=== PATIENT | female | born 1975 | race Asian ===

== ENCOUNTER → 2021-05-20 16:19 | Outpatient (CLI) | payer OTHER, SELFPAY ==
[2021-05-20 17:02] LABS: COVID19 -Nasal RAPID Negative (Negative)
== END ==
PROVIDERS: Visit Provider Physician Assistant
DX: R05 Cough (principal); R19.7 Diarrhea, unspecified; Z20.822 Contact with and (suspected) exposure to COVID-19
CPT/HCPCS: 87635

== ENCOUNTER 2023-10-23 23:20 | Emergency (ER) | payer OTHER, SELFPAY ==
[2023-10-23 23:27] VITALS: BP 161/88; PULSE 73; O2SAT 99
[2023-10-23 23:30] VITALS: BP 134/65; PULSE 79; O2SAT 100
--- NOTE | 2023-10-23 23:35 | ED.GENADULT ---
HPI - General Adult General Chief complaint: Extremity Problem,Nontraumatic Stated complaint: Reaction to medication Time Seen by Provider: 10/23/23 23:23 History of Present Illness HPI narrative: 48-year-old female who presents with right-sided paraspinal cervical neck and shoulder pain described as a non-radiating ache for x 2 days. Patient also reporting intermittent right lower extremity/posterior pain that has now resolved, with left lower extremity posterior pain described as an ache that started just prior to arrival. Patient reports taking medroxyprogesterone yesterday beginning another round of medication after completing a 10 day course starting on 10/01/2023 for dysfunctional uterine bleeding secondary to uterine fibroids. Patient reports menorrhagia for 2 years. Patient reports being in her usual state of health prior to symptom onset. No other complaints or associated symptoms noted. Patient arrives via private vehicle. Patient is ambulatory awake, alert, in no apparent distress and maintaining her own airway. Related Data Home Medications Medication Instructions Recorded Confirmed medroxyprogesterone 10 mg tablet 10 mg PO DAILY 10/23/23 Allergies Allergy/AdvReac Type Severity Reaction Status Date / Time acetaminophen [From VICODIN] Allergy Unknown rash Unverified 01/27/18 12:22 ciprofloxacin [From CIPRO] Allergy Unknown achilles Unverified 01/27/18 12:22 tendon hydrocodone [From VICODIN] Allergy Unknown rash Unverified 01/27/18 12:22 ibuprofen [IBUPROFEN] Allergy Unknown rash Unverified 01/27/18 12:22 oxycodone [From PERCOCET] Allergy Unknown rash Unverified 01/27/18 12:22 Review of Systems Review of Systems Narrative: See HPI for pertinent positives, otherwise review of systems is negative Patient History Surgical History Status post delivery (08/04/14) Social History Smoking Status: Never smoker Smoking Status: Never smoker Exam Initial Vital Signs Initial Vital Signs: Vital Signs Pulse Rate 73 10/23/23 23:27 Blood Pressure 161/88 H 10/23/23 23:27 Pulse Oximetry 99 10/23/23 23:27 Const General: cooperative, healthy appearing, comfortable, well developed, well groomed, No acute distress, No in distress, anxious, No diaphoretic, No ill appearing and well hydrated [facility] [place] Head: normal to inspection, normocephalic and atraumatic Nose: external nose normal and nares normal Face and sinus: normal facial exam Mouth: oral mucosae normal, lip normal, tongue normal, oropharynx normal and moist mucous membranes Throat: posterior oropharynx normal Eyes General: Yes appearance normal, both eyes and all related structures Neck Neck: normal visual inspection Chest Chest: normal inspection of the chest Resp Effort & Inspection: normal respiratory effort, able to speak in complete sentences and no respiratory distress Cardio Rate: regular rate Rhythm: regular rhythm Pulses: radial pulses present GI Inspection: normal to inspection and non-distended Other: Exam deferred Back/Spine/Pelvis Back: normal to inspection, No back tenderness, No crepitance, No CVA tenderness, No ecchymosis, No erythema, No mass and No warmth Cervical Spine: normal cervical lordosis, cervical ROM normal, cervical muscular tenderness, cervical spasm and No step off deformity Thoracic/Lumbar Spine: thoracic and lumbar spine normal to inspection Skin General: no rashes or lesions noted and turgor normal Neuro General: patient alert, patient awake, patient oriented x3, gait normal and moves all extremities Extrem General: normal to inspection, full ROM, no joint enlargement, No cyanosis and No edema Psych Appearance: grossly normal and well kempt Speech and Movement: speech and movement normal and speech clear Course Course Course Narrative: See MDM Orders Ordered: ED Orders 10/23/23 23:39 CBC Auto Diff [Complete Blood Count AUTO DIFF] Stat CMP [Comprehensive Metabolic Panel] Stat Discontinued Medications Sodium Chloride (Normal Saline 0.9%) 1,000 mls @ 1,000 mls/hr IV BOLUS ONE Stop: 10/24/23 00:32 Last Infusion: 10/24/23 00:22 Dose: Infused Vital Signs Vital signs: Vital Signs - 8 hr 10/23/23 23:27 10/23/23 23:27 10/23/23 23:30 Temperature Pulse Rate 73 Respiratory Rate Blood Pressure 161/88 H 134/65 Pulse Oximetry 99 Oxygen Delivery Method 10/23/23 23:30 10/23/23 23:43 10/24/23 00:00 Temperature 98.5 F Pulse Rate 79 78 66 Respiratory Rate 18 Blood Pressure 158/84 H Pulse Oximetry 100 100 100 Oxygen Delivery Method Room Air 10/24/23 00:00 Temperature Pulse Rate Respiratory Rate Blood Pressure 122/60 Pulse Oximetry Oxygen Delivery Method Medical Decision Making Differential Diagnosis Differential Diagnosis: DVT, muscle spasms, electrolyte abnormalities, anemia, anxiety Lab Data Lab results narrative: Anemia and minor hyponatremia noted otherwise diagnostic laboratory testing within normal limits/non-actionable. 10/23/23 23:39 10/23/23 23:39 Labs: Lab Results 10/23/23 Range/Units 23:39 WBC 10.1 (4.5-11.0) X10^3/uL RBC 4.99 (4.0-5.2) X10^6/uL Hgb 10.2 L (12.0-16.0) g/dL Hct 33.0 L (36-46) % MCV 66.2 L (80-100) fL MCH 20.5 L (26-34) PG MCHC 31.0 (30-36) % RDW 29.3 H (11.6-14.8) % Plt Count 314 (150-400) X10^3/uL Neut % (Auto) 65.0 (50-75) % Lymph % (Auto) 23.5 L (25-40) % [place] % (Auto) 9.7 (3-14) % Eos % (Auto) 1.5 L (2-4) % Baso % (Auto) 0.3 (0-2) % Neut # (Auto) 6600 (8885-0226) /uL Lymph # (Auto) 2400 (9276-2634) /uL [place] # (Auto) 1000 H (0-900) /uL Eos # (Auto) 200 (0-450) /uL Baso # (Auto) 0 (0-100) /uL RBC Morphology See below Hypochromasia 1+ H Anisocytosis 2+ H Microcytosis 2+ H Sodium 136 L (137-145) mmol/L Potassium 4.2 (3.4-5.1) mmol/L Chloride 104 (98-107) mmol/L Carbon Dioxide 24 (22-32) mmol/L BUN 14 (7-17) mg/dL Creatinine 0.69 (0.52-1.04) mg/dL Estimated GFR > 60 (>60) mL/min BUN/Creatinine Ratio 20.3 (6-22) Glucose 88 (70-100) mg/dL Calcium 9.4 (8.4-10.2) mg/dL Total Bilirubin 0.5 (0.2-1.3) mg/dL AST 33 (14-36) IU/L ALT 36 H (<35) IU/L Alkaline Phosphatase 74 (38-126) U/L Total Protein 7.9 (6.3-8.2) g/dL Albumin 4.6 (3.5-5.0) g/dL Globulin 3.3 (1.7-4.1) g/dL Albumin/Globulin Ratio 1.4 (1.0-2.8) MDM Narrative Medical decision making narrative: Patient presents with transient bilateral lower extremity pain and tenderness along with right-sided paraspinal cervical pain and spasm. Current vital signs are within normal limits/non actionable. Patient is afebrile. Pulse oximetry 98% on room air, normal pulse oximetry. Patient does have increased risk of coagulopathy with medroxyprogesterone. Patient's transient lower extremity pain and tenderness are not consistent with DVT and no imaging is warranted at this time. Diagnostic laboratory testing is not suggestive of electrolyte abnormalities. IV fluids given. Discussed findings with patient. Patient is vague, nonspecific symptoms are difficult to associated directly with medroxyprogesterone. Patient does not appear to be in anaphylaxis or any acute allergic reaction/drug reaction. Return precautions given. PCP follow-up recommended in 1 week. Patient able to ambulate well without assistance at time of discharge. Discharge Plan Departure Patient Disposition: Home Clinical Impression: Muscle spasm of calf, Muscle spasm of back Anemia Qualifiers: Anemia type: unspecified type Qualified Code(s): D64.9 - Anemia, unspecified Instructions: DI for Muscle Spasm Prescriptions: Continued medroxyprogesterone 10 mg tablet 10 mg PO DAILY Referrals: Santi Ledesma MD [Primary Care Provider] - As soon as possible Stand Alone Forms: Patient Portal/API
[2023-10-23] MEDS: SODIUM CHLORIDE 0.9% 1,000 ML 1000 ML IV (23:38)
[2023-10-23 23:43] VITALS: BP 158/84; PULSE 78; RESP 18; TEMP 36.9; O2SAT 100; BMI 28.3
--- NOTE | 2023-10-23 23:54 | PC.NURSE ---
see triage note for complaint, pt states she just found out she has fibroids and had a consultation today to have them removed
[2023-10-23 23:56] LABS: Add Manual Diff / Slide Review NO; Basophils Absolute Auto 0 /uL (0-100); Basophils Percent Auto 0.3 % (0-2); Eosinophils Absolute Auto 200 /uL (0-450); Eosinophils Percent Auto 1.5 % (2-4); Hemoglobin 10.2 g/dL (12.0-16.0); Lymphocytes Absolute Auto 2400 /uL (1100-4500); Lymphocytes Percent Auto 23.5 % (25-40); Mean Corpuscular Hemoglobin 20.5 PG (26-34); Mean Corpuscular Volume 66.2 fL (80-100); Monocytes Absolute Auto 1000 /uL (0-900); Monocytes Percent Auto 9.7 % (3-14); Neutrophils Absolute Auto 6600 /uL (1500-7000); Platelet Count 314 X10^3/uL (150-400); Red Blood Cell Count 4.99 X10^6/uL (4.0-5.2); Red Cell Distribution Width 29.3 % (11.6-14.8); White Blood Cell Count 10.1 X10^3/uL (4.5-11.0)
[2023-10-23 23:57] LABS: Alanine Aminotransferase 36 IU/L (<35); Albumin 4.6 g/dL (3.5-5.0); Albumin Globulin Ratio 1.4 (1.0-2.8); Alkaline Phosphatase 74 U/L (38-126); Aspartate Aminotransferase 33 IU/L (14-36); BUN Creatinine Ratio 20.3 (6-22); Bilirubin Total 0.5 mg/dL (0.2-1.3); Blood Urea Nitrogen 14 mg/dL (7-17); Calcium 9.4 mg/dL (8.4-10.2); Carbon Dioxide 24 mmol/L (22-32); Chloride 104 mmol/L (98-107); Estimated Glomerular Filt Rate > 60 mL/min (>60); Globulin 3.3 g/dL (1.7-4.1); Glucose 88 mg/dL (70-100); HEMOLYSIS < 15 (0-50); Potassium 4.2 mmol/L (3.4-5.1); Sodium 136 mmol/L (137-145); Total Protein 7.9 g/dL (6.3-8.2)
[2023-10-24] VITALS: BP 122/60; PULSE 66; O2SAT 100
[2023-10-24 00:07] LABS: Anisocytosis 2+; Hypochromasia 1+; Microcytosis 2+
== END 2023-10-24 00:23 | disposition home or self-care (01) ==
PROVIDERS: Emergency Provider Emergency Medicine; PCP Family Medicine
DX: M62.830 Muscle spasm of back (principal); M62.831 Muscle spasm of calf; D64.9 Anemia, unspecified
CPT/HCPCS: 36415; 80053; 85025; 99283; 99284

== ENCOUNTER 2023-11-15 07:30 | Emergency (ER) | payer OTHER, SELFPAY ==
[2023-11-15 07:39] VITALS: BP 124/57; PULSE 60; RESP 16; TEMP 36.6; O2SAT 100; BMI 26.6
--- NOTE | 2023-11-15 07:54 | ED_ITS ---
HPI - General Adult General Chief complaint: Abdominal Pain Stated complaint: per pt has fibroids, uterus pain Time Seen by Provider: 11/15/23 07:36 Source: patient Mode of arrival: Ambulatory Limitations: no limitations History of Present Illness HPI narrative: Patient is a 48-year-old female. A known history of uterine fibroids. Has never had any discomfort with them but has had abnormal vaginal bleeding associated with anemia. There has been discussion about a hysterectomy but that is yet to happen. She has had a in the past. This morning after waking up she was standing in her kitchen when she had a fairly sudden onset of very intense lower abdominal/adnexal pain. She states that it lasted for approximately 15-20 minutes and then started to improve. She did feel like she needed to have a bowel movement and did have diarrhea during this time. Diarrhea is not unusual for her since she started taking iron tablets. She was also nauseous and very sweaty. The episode of diarrhea did not improve her abdominal pain. She states that it did start to improve while she was in route here to the emergency department. She has not having any vaginal bleeding. No urinary symptoms. No history of kidney stones. Currently she states she is just having some soreness in her lower abdomen. It is both sides but left greater than right and also midline. No fevers. No recent travel. She states the pain was crampy in nature. Related Data Home Medications Medication Instructions Recorded Confirmed medroxyprogesterone 10 mg tablet 10 mg PO DAILY 10/23/23 Allergies Allergy/AdvReac Type Severity Reaction Status Date / Time acetaminophen [From VICODIN] Allergy Unknown rash Unverified 01/27/18 12:22 ciprofloxacin [From CIPRO] Allergy Unknown achilles Unverified 01/27/18 12:22 tendon hydrocodone [From VICODIN] Allergy Unknown rash Unverified 01/27/18 12:22 ibuprofen [IBUPROFEN] Allergy Unknown rash Unverified 01/27/18 12:22 oxycodone [From PERCOCET] Allergy Unknown rash Unverified 01/27/18 12:22 Review of Systems Constitutional Constitutional: Reports system reviewed and no additional complaints, except as documented Cardiovascular Cardiovascular: Reports system reviewed and no additional complaints, except as documented Respiratory Respiratory: Reports system reviewed and no additional complaints, except as documented Gastrointestinal Gastrointestinal: Reports system reviewed and no additional complaints, except as documented Genitourinary Genitourinary: Reports system reviewed and no additional complaints, except as documented Hematologic/Lymphatic On Anticoagulants: No Patient History Surgical History Status post delivery (08/04/14) Social History Smoking Status: Never smoker Smoking Status: Never smoker Exam Initial Vital Signs Initial Vital Signs: Vital Signs Temperature 97.8 F 11/15/23 07:39 Pulse Rate 60 11/15/23 07:39 Respiratory Rate 16 11/15/23 07:39 Blood Pressure 124/57 L 11/15/23 07:39 Pulse Oximetry 100 11/15/23 07:39 Oxygen Delivery Method Room Air 11/15/23 07:39 Const General: cooperative, comfortable and No ill appearing HENMT Head: normal to inspection and normocephalic GI Inspection: normal to inspection and non-distended Palpation: soft, No firm, No guarding and tender (Lower abdomen) Other: Bilateral adnexal tenderness Back/Spine/Pelvis Back: No CVA tenderness Neuro General: patient alert, patient awake and moves all extremities Extrem General: capillary refill normal Course Orders Ordered: ED Orders 11/15/23 07:55 US pelvic complete Stat 11/15/23 08:15 Complete Blood Count AUTO DIFF Stat Comprehensive Metabolic Panel Stat Lipase Stat Vital Signs Vital signs: Vital Signs - 8 hr 11/15/23 07:39 Temperature 97.8 F Pulse Rate 60 Respiratory Rate 16 Blood Pressure 124/57 L Pulse Oximetry 100 Oxygen Delivery Method Room Air Medical Decision Making Lab Data Lab results reviewed: Yes I reviewed the patient's lab results. 11/15/23 08:15 11/15/23 08:15 Labs: Lab Results 11/15/23 Range/Units 08:15 WBC 6.6 (4.5-11.0) X10^3/uL RBC 4.84 (4.0-5.2) X10^6/uL Hgb 12.0 (12.0-16.0) g/dL Hct 37.4 (36-46) % MCV 77.3 L (80-100) fL MCH 24.8 L (26-34) PG MCHC 32.1 (30-36) % RDW 33.4 H (11.6-14.8) % Plt Count 286 (150-400) X10^3/uL Neut % (Auto) 83.1 H (50-75) % Lymph % (Auto) 9.5 L (25-40) % [place] % (Auto) 5.3 (3-14) % Eos % (Auto) 0.8 L (2-4) % Baso % (Auto) 1.3 (0-2) % Neut # (Auto) 5500 (3506-2299) /uL Lymph # (Auto) 600 L (8391-7525) /uL [place] # (Auto) 300 (0-900) /uL Eos # (Auto) 100 (0-450) /uL Baso # (Auto) 100 (0-100) /uL RBC Morphology See below Anisocytosis 2+ H Microcytosis 1+ H Ovalocytes 1+ H Schistocytes 1+ H Sodium 136 L (137-145) mmol/L Potassium 4.6 (3.4-5.1) mmol/L Chloride 106 (98-107) mmol/L Carbon Dioxide 24 (22-32) mmol/L BUN 10 (7-17) mg/dL Creatinine 0.58 (0.52-1.04) mg/dL Estimated GFR > 60 (>60) mL/min BUN/Creatinine Ratio 17.2 (6-22) Glucose 99 (70-100) mg/dL Calcium 9.1 (8.4-10.2) mg/dL Total Bilirubin 0.4 (0.2-1.3) mg/dL AST 39 H (14-36) IU/L ALT 41 H (<35) IU/L Alkaline Phosphatase 80 (38-126) U/L Total Protein 7.1 (6.3-8.2) g/dL Albumin 4.0 (3.5-5.0) g/dL Globulin 3.1 (1.7-4.1) g/dL Albumin/Globulin Ratio 1.3 (1.0-2.8) Lipase 52 (23-300) U/L Point of Care Testing Test Results Negative Urine Dip Bedside Urine Glucose Negative Bedside Urine Bilirubin - Negative Bedside Urine Ketone - Negative Urine Specific [place] 1.020 Bedside Urine Occult Blood - Negative Bedside Urine pH 6.0 Bedside Urine Protein - Negative Bedside Urine Urobilinogen - Negative Bedside Urine Nitrite - Negative Bedside Urine Leukocytes - Negative Esterase Point of care testing: Point of Care Testing Test Results Negative Urine Dip Bedside Urine Glucose Negative Bedside Urine Bilirubin - Negative Bedside Urine Ketone - Negative Urine Specific [place] 1.020 Bedside Urine Occult Blood - Negative Bedside Urine pH 6.0 Bedside Urine Protein - Negative Bedside Urine Urobilinogen - Negative Bedside Urine Nitrite - Negative Bedside Urine Leukocytes - Negative Esterase Imaging Data US - PREVENTIVE MAINTENANCE ENGINEER: Radiologist's Impression: ROCEDURE: US PELVIC COMPLETE INDICATIONS: known fibroids L adnexa pain TECHNIQUE: Real-time scanning was performed of the pelvic organs, with image documentation. Additional endovaginal scanning was necessary due to incomplete visualization of the adnexal and endometrial structures by transabdominal scanning. COMPARISON: None. FINDINGS: Uterus: Uterus is anteverted and enlarged in size at 2.9 x 9 x 2.2 cm. The myometrium is heterogeneous. The endometrial stripe is not well seen, secondary to fibroids. Hypoechoic uterine lesions are seen, which are attributed to fibroids. They measure as follows: Right uterus, intramural conus of 7.3 x 7.9 x 7.1 cm Left posterior uterus, intramural, 3.2 x 1.8 x 2.6 cm Left anterior uterus, intramural, 3.3 x 2.4 x 3.3 cm Ovaries: The right ovary is not seen. The left ovary measures 3.3 x 4.9 x 1.7, with a volume 14.5 cc. There is a complex nonvascular cyst within the left ovary that measures up to 1.8 cm. Normal appearing arterial waveforms are confirmed to the left ovary. Less than 12 follicles can be seen involving the left ovary. Other: No pathologic free abdominal or pelvic fluid. IMPRESSION: Negative for ovarian torsion. Mildly complex left ovarian cyst, 1.8 cm. If it would be clinically appropriate, a followup pelvic ultrasound could be considered in 6 weeks to assure resolution/ improvement. Large uterine fibroids are seen. Right ovary not seen. MDM Narrative Medical decision making narrative: Patient's abdominal pain has improved from when it was at its worse earlier this morning but is essentially the same on my re-evaluation as to what it was during my initial evaluation. The pelvic ultrasound shows uterine fibroids and a left- sided ovarian cyst. We did discuss the possibility that these are the cause of her discomfort this morning although it could not be 100% certain. We discussed the other possibility such as appendicitis or bowel obstruction or diverticulitis. We discussed the benefits and risks of a CT scan. After this discussion we opted not to perform the CT scan. I feel that this is not unreasonable. She will continue to take her medications as directed. She was given strict return precautions. She expressed understanding and agreement with plan. Discharge Plan Departure Patient Disposition: Home Clinical Impression: Abdominal pain Instructions: DI for Abdominal Pain-Adult Activity Restrictions/Additional Instructions: Recommend that you continue to take all of your medications as directed. Contact your primary care provider and your shift supervisor rn for a follow-up. Return to the emergency department for new or worsening symptoms Prescriptions: No Action medroxyprogesterone 10 mg tablet 10 mg PO DAILY Referrals: Santi Ledesma MD [Primary Care Provider] - Stand Alone Forms: Patient Portal/API
--- NOTE | 2023-11-15 07:55 | DI.US.S_ITS ---
PROCEDURE: US PELVIC COMPLETE INDICATIONS: known fibroids L adnexa pain TECHNIQUE: Real-time scanning was performed of the pelvic organs, with image documentation. Additional endovaginal scanning was necessary due to incomplete visualization of the adnexal and endometrial structures by transabdominal scanning. COMPARISON: None. FINDINGS: Uterus: Uterus is anteverted and enlarged in size at 2.9 x 9 x 2.2 cm. The myometrium is heterogeneous. The endometrial stripe is not well seen, secondary to fibroids. Hypoechoic uterine lesions are seen, which are attributed to fibroids. They measure as follows: Right uterus, intramural conus of 7.3 x 7.9 x 7.1 cm Left posterior uterus, intramural, 3.2 x 1.8 x 2.6 cm Left anterior uterus, intramural, 3.3 x 2.4 x 3.3 cm Ovaries: The right ovary is not seen. The left ovary measures 3.3 x 4.9 x 1.7, with a volume 14.5 cc. There is a complex nonvascular cyst within the left ovary that measures up to 1.8 cm. Normal appearing arterial waveforms are confirmed to the left ovary. Less than 12 follicles can be seen involving the left ovary. Other: No pathologic free abdominal or pelvic fluid. IMPRESSION: Negative for ovarian torsion. Mildly complex left ovarian cyst, 1.8 cm. If it would be clinically appropriate, a followup pelvic ultrasound could be considered in 6 weeks to assure resolution/ improvement. Large uterine fibroids are seen. Right ovary not seen. We strive to produce accurate, complete, and clear reports of imaging services. To assist us in improving patient care, this report was composed using standard report templates and voice recognition software. Therefore, it may contain abnormal punctuation, insertions and/or omissions. Occasional wrong-word or sound-alike substitutions may occur. Though we review the report and make efforts to correct it, we do recommend that the report be read carefully in proper context to recognize any text inaccuracies. Dictated by: Sergey Santiago M.D. on 11/15/2023 at 7:57 Approved by: Sergey Santiago M.D. on 11/15/2023 at 8:00
[2023-11-15 08:22] LABS: Add Manual Diff / Slide Review NO; Basophils Absolute Auto 100 /uL (0-100); Basophils Percent Auto 1.3 % (0-2); Eosinophils Absolute Auto 100 /uL (0-450); Eosinophils Percent Auto 0.8 % (2-4); Hematocrit 37.4 % (36-46); Lymphocytes Absolute Auto 600 /uL (1100-4500); Lymphocytes Percent Auto 9.5 % (25-40); Mean Corpuscular HGB Conc 32.1 % (30-36); Mean Corpuscular Hemoglobin 24.8 PG (26-34); Mean Corpuscular Volume 77.3 fL (80-100); Monocytes Absolute Auto 300 /uL (0-900); Monocytes Percent Auto 5.3 % (3-14); Neutrophils Absolute Auto 5500 /uL (1500-7000); Neutrophils Percent Auto 83.1 % (50-75); Platelet Count 286 X10^3/uL (150-400); Red Blood Cell Count 4.84 X10^6/uL (4.0-5.2); Red Cell Distribution Width 33.4 % (11.6-14.8); White Blood Cell Count 6.6 X10^3/uL (4.5-11.0)
[2023-11-15 08:34] LABS: Anisocytosis 2+; Microcytosis 1+; Ovalocytes 1+; Schistocytes 1+
[2023-11-15 08:41] LABS: Alanine Aminotransferase 41 IU/L (<35); Albumin Globulin Ratio 1.3 (1.0-2.8); Alkaline Phosphatase 80 U/L (38-126); Aspartate Aminotransferase 39 IU/L (14-36); BUN Creatinine Ratio 17.2 (6-22); Bilirubin Total 0.4 mg/dL (0.2-1.3); Blood Urea Nitrogen 10 mg/dL (7-17); Calcium 9.1 mg/dL (8.4-10.2); Carbon Dioxide 24 mmol/L (22-32); Chloride 106 mmol/L (98-107); Estimated Glomerular Filt Rate > 60 mL/min (>60); Globulin 3.1 g/dL (1.7-4.1); Glucose 99 mg/dL (70-100); HEMOLYSIS < 15 (0-50); Lipase 52 U/L (23-300); Potassium 4.6 mmol/L (3.4-5.1); Sodium 136 mmol/L (137-145); Total Protein 7.1 g/dL (6.3-8.2)
[2023-11-15 09:45] VITALS: BP 110/80; PULSE 73; O2SAT 100
== END 2023-11-15 10:03 | disposition home or self-care (01) ==
PROVIDERS: Emergency Provider Emergency Medicine; PCP Family Medicine
DX: R10.30 Lower abdominal pain, unspecified (principal); D25.9 Leiomyoma of uterus, unspecified
CPT/HCPCS: 36415; 76856; 80053; 81003; 81025; 83690; 85025; 99284

== ENCOUNTER 2024-03-07 08:27 | Day surgery (SDC) | payer OTHER, SELFPAY ==
[2024-02-29 09:32] VITALS: BMI 27.3
--- NOTE | 2024-03-07 | PATH_ITS ---
[facility] Accession Number: [id number] No. of containers..02 Tissue . 01 Material submitted: . PART A: uterus - UTERUS,FALLOPIAN TUBES PART B: cervix - CERVICAL POLYP . 01 Diagnosis: A. 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 - Probable adenomyosis. - Secretory phase endometrium without atypical hyperplasia. Two fimbriated fallopian tubes with multiple benign paratubal cysts. . B. UTERINE CERVIX, POLYPECTOMY: Endocervical polyp with squamous metaplasia. Negative for dysplasia and malignancy. [facility] 03/11/2024 1510 Local . 01 Electronically signed: . Yashira Reyna MD, Pathologist NPI- [id number] . 01 Gross description: . A. Received in formalin with two identifiers and uterus, fallopian tubes, is a morcellated uterus (475 grams, 17.2 x 15.5 x 7.4 cm), with two detached, unoriented, fimbriated fallopian tubes (5.3 x 0.6 cm and 5.1 x 0.7 cm), with no cervix or additional adnexa. The endometrium is pack and lush averaging 0.2 cm thick with a slightly gelatinous, soft appearance. The myometrium varies from pack and trabecular to white and whorled with no distinct nodules identified due to morcellation. Both tubes have violaceous smooth serosa with cystic structures measuring up to 0.1 cm in greatest dimension filled with cloudy serous fluid. The lumen are steallate and unremarkable. Recoverer sections are submitted as follows: A1: Endometrium. A2: White whorled areas. A3: Longer fallopian tube to include one-half of bisected fimbriae and cross-sections. A4: [place] fallopian tube to include one-half of bisected fimbriae and cross-sections. B. Received in formalin with two identifiers and cervical polyp, are multiple pack soft tissue fragments admixed with mucohemorrhagic material aggregating to 2.0 x 1.7 x 0.2 cm. Filtered and submitted entirely in cassette B1. ([id number]) /[facility] 03/08/2024 1103 Local . 01 Pathologist provided ICD-10: D25.0 . 01 CPT . 201069, [id number] Specimen Comment: A courtesy copy of this report has been sent to [phone] Performed at: [address] [facility] [address], [place], [place] [id number] MD Galen Rodriguez MD Phone: [phone]
[2024-03-07 09:04] VITALS: BMI 27.3
[2024-03-07 09:24] VITALS: BP 113/70; PULSE 65; RESP 14; TEMP 37.1; O2SAT 99
[2024-03-07] MEDS: LACTATED RINGERS 1,000 ML 21 ML IV (09:33)
--- NOTE | 2024-03-07 09:39 | PM.PREOP ---
Pre-operative Note Interval Note History & Physical reviewed/Exam performed by Physician: Yes Changes to H&P: No H&P completed within 30 days and has changed as indicated here:: 02/22/24
[2024-03-07] MEDS: CEFAZOLIN 2 GM/100 ML PREMIX 100 ML IV (10:15)
[2024-03-07] MEDS: ACETAMINOPHEN IV 1,000 MG/100 ML VIAL 400 MG IV (10:20)
--- NOTE | 2024-03-07 10:44 | SUR.OPER ---
Lithotomy on padded OR bed. [place] Pad Positioner under torso. Head on pillow, arms padded and tucked at sides. Legs secured in padded yellow fins stirrups.
[2024-03-07] MEDS: BUPIVACAINE 0.5% (PF) 30 ML, EPINEPHrine 0.15 MG INJ (10:45)
[2024-03-07] MEDS: ROPIVACAINE 0.2% PF 2 MG/ML 10ML AMP 20 ML INJ (11:36)
[2024-03-07 12:30] VITALS: BP 110/56; PULSE 84; RESP 15; TEMP 36.3; O2SAT 99
[2024-03-07 12:34] VITALS: BP 115/62; PULSE 78; RESP 10; O2SAT 100
[2024-03-07 12:40] VITALS: BP 108/25; PULSE 64; RESP 14; O2SAT 99
--- NOTE | 2024-03-07 12:42 | SUR.PHASEI ---
VVO to remove goldberg catheter per Dr. Gupta. Balloon deflated and the goldberg was removed without difficulty.
--- NOTE | 2024-03-07 12:43 | P.OP_ITS ---
Operative Date/Time/Diagnoses Date of procedure: 03/07/24 Time of procedure: 12:44 Pre-op diagnosis: Menorrhagia Anemia Enlarged fibroid uterus Post-op diagnosis: same Procedure & Clinicians Procedure: Procedures Operation Date: 03/07/24 09:45 Actual Procedure Side Surgeon p Laparoscopic Supracervical Hysterectomy with bilateral salpingectomy and excision of a cervical polyp Sapna Gupta MD Indications: 48-year-old 3 para 2 with menorrhagia, and enlarged fibroid uterus, and anemia. Surgeon: Sapna Gupta [employer] Lab Technician: Deidra Mancini Anesthesia Type: General and Local Operative Notes Findings: 12 week size multifibroid uterus Normal tubes and ovaries Normal liver and gallbladder Normal appendix 1.5 x 1.5 cm cervical polyp at the 3 o'clock position Closure Type: primary Specimen(s): left tube, right tube, uterus and other (Cervical polyp) Applied: catheter (Removed) Estimated blood loss (mL): 150 Blood products transfused: none Procedure in detail: The patient was taken to the operating room where she was placed in the dorsal supine position. After adequate general endotracheal anesthesia was achieved, she was placed in the dorsal lithotomy position, and prepped and draped in the usual sterile fashion. A timeout was performed. A bivalve speculum was placed into the vagina and the anterior lip of the cervix grasped with a single-tooth tenaculum. The cervical os was sequentially dilated until the ZUMI uterine manipulator could pass easily into the endometrial cavity. The single-tooth tenaculum was removed from the anterior lip of the cervix, and the bivalve speculum was removed from the vagina. Attention was then turned to the abdomen where 6 mL of half percent Marcaine with epinephrine were injected in the umbilical fold. A 5 mm incision was made. The veress needle was placed into the peritoneal cavity, and its placement confirmed by aspiration and drop test. The abdomen was insufflated with 3.4 L of CO2. The veress needle was removed. A 5 mm trocar was placed without difficulty. 2 other incisions were made 4 cm lateral to the umbilicus after 5 mL of half percent Marcaine with epinephrine were injected. These were 5 mm incisions. Two, 5 mm trocars were placed under direct visualization. The right tube was grasped with an atraumatic grasper. Using the power seal, the mesosalpinx was cauterized and cut all the way down to the cornua of the uterus. The cornua of the uterus was then grasped with an atraumatic grasper. The utero-ovarian ligaments were cauterized and cut. The round ligament and broad ligament were cauterized and cut with the power seal. Hemostasis was achieved. The bladder flap was created using the power seal with cautery and cut mcfp across. The uterine arteries on the right side were extensively cauterized with the power seal. All of this was repeated on the left side. The remainder of the bladder flap was created using the power seal, and the bladder taken down off the lower uterine segment and cervix. The Zumi uterine manipulator was removed from the uterus and a moistened sponge stick was placed into the vagina. Using the Linaloop, the cervix was amputated from the uterus 2 cm above the uterosacral ligaments. There was a small amount of bleeding noted from the posterior edge of the cervix, and this was cauterized for hemostasis. 6 mL of half percent Marcaine with epinephrine were injected above the pubic symphysis. A 12mm incision was made. A 12 mm trocar was placed under direct visualization. An Endobag was placed through the suprapubic trocar and the uterus and tubes were placed into the Endobag. The trocar was removed. The edges of the endobag were brought up through the incision. The incision was extended on the fascia using the Young scissors. The uterus was grasped with a Paula. The Aubrey was placed into the bag. The uterus was hand morcellated in approximately 40 pieces. The tubes were also removed from the Endobag. The Endobag was removed from the peritoneal cavity with the Aubrey. The fascia was closed with 0 Vicryl in a running fashion. The abdomen was re-insufflated with carbon dioxide gas. The pelvis was copiously irrigated with warm normal saline. No bleeding was noted. 20 mL of 0.2% ropivacaine were placed over the pelvic pedicles. The instruments were removed from the abdomen. The CO2 was allowed to escape. The subcutaneous layer was closed with 2 simple interrupted sutures with 3-0 Vicryl on the suprapubic incision. All of the incisions were closed with 4-0 Biosyn in a subcuticular fashion. Steri strips and Allevyn dressings were placed over the incisions. The moistened sponge stick was removed from the vagina. Sponge, lap, and instrument counts were correct x 2. The patient tolerated the procedure well, was taken to PACU in stable condition. Complications: none Post-operative Condition: stable Disposition: PACU Plan for aftercare: Home after recovery
[2024-03-07 12:45] VITALS: BP 106/56; PULSE 61; RESP 12; O2SAT 99
[2024-03-07 12:55] VITALS: BP 115/47; PULSE 60; RESP 12; TEMP 36.8; O2SAT 100
== END 2024-03-07 13:36 | disposition home or self-care (01) ==
LOC: OR 08:29 → AC 08:29
PROVIDERS: PCP Family Medicine; Referring Provider Obstetrics & Gynecology; Visit Provider Obstetrics & Gynecology
PROC: 0UT94ZL Resection of Uterus, Supracervical, Percutaneous Endoscopic Approach (ICD-10-PCS; CPT 58544; principal; 2024-03-07 09:45)
DX: N92.0 Excessive and frequent menstruation with regular cycle (principal); D50.0 Iron deficiency anemia secondary to blood loss (chronic); D25.1 Intramural leiomyoma of uterus; N83.8 Other noninflammatory disorders of ovary, fallopian tube and broad ligament; N84.1 Polyp of cervix uteri
CPT/HCPCS: 58544; 57500; 57550; 82962; J0136; J0171; J0690; J1100; J1885; J2250; J2405; J2704; J2795; J3010

== ENCOUNTER → 2024-04-18 14:29 | Outpatient (CLI) | payer OTHER, SELFPAY ==
[2024-04-18 14:58] LABS: Add Manual Diff / Slide Review NO; Basophils Absolute Auto 100 /uL (0-100); Basophils Percent Auto 0.9 % (0-2); Eosinophils Absolute Auto 0 /uL (0-450); Eosinophils Percent Auto 0.5 % (2-4); Hematocrit 43.8 % (36-46); Hemoglobin 14.5 g/dL (12.0-16.0); Lymphocytes Absolute Auto 1300 /uL (1100-4500); Lymphocytes Percent Auto 18.7 % (25-40); Mean Corpuscular HGB Conc 33.2 % (30-36); Mean Corpuscular Hemoglobin 29.3 PG (26-34); Mean Corpuscular Volume 88.2 fL (80-100); Monocytes Absolute Auto 500 /uL (0-900); Monocytes Percent Auto 7.5 % (3-14); Neutrophils Absolute Auto 5000 /uL (1500-7000); Neutrophils Percent Auto 72.4 % (50-75); Platelet Count 208 X10^3/uL (150-400); Red Blood Cell Count 4.97 X10^6/uL (4.0-5.2); Red Cell Distribution Width 13.8 % (11.6-14.8); White Blood Cell Count 6.9 X10^3/uL (4.5-11.0)
== END ==
PROVIDERS: PCP Family Medicine; Referring Provider Obstetrics & Gynecology; Visit Provider Obstetrics & Gynecology
DX: D64.9 Anemia, unspecified (principal)
CPT/HCPCS: 36415; 85025